=== PATIENT | female | born 1950 | race Caucasian/White ===

== ENCOUNTER 2023-01-18 08:59 | Inpatient (IN) ==
--- NOTE | 2022-12-29 14:29 | PAT Medication Instructions ---
Medication Instructions Date of Service December 29, 2022 Home Medications cholecalciferol (vitamin D3) 50 mcg (2,000 unit) tablet (Vitamin D3) 50 mcg PO QAM levothyroxine 88 mcg tablet (Synthroid) 88 mcg PO QAM Centrum 1 tab PO QAM naproxen sodium 220 mg tablet (Aleve) 220 mg PO Q12H PRN Pain PreserVision AREDS-2 1 tab PO BID ASK your surgeon for instructions naproxen sodium 220 mg tablet (Aleve) 220 mg PO Q12H PRN Pain STOP taking 2 weeks before surgery (or as soon as possible if surgery is within 2 weeks) PreserVision AREDS-2 1 tab PO BID DO NOT take the morning of surgery cholecalciferol (vitamin D3) 50 mcg (2,000 unit) tablet (Vitamin D3) 50 mcg PO QAM Centrum 1 tab PO QAM Take morning of surgery With a small sip of water, OTHERWISE NOTHING TO EAT OR DRINK AFTER MIDNIGHT: levothyroxine 88 mcg tablet (Synthroid) 88 mcg PO QAM Other Notes If you have any questions please call us at [phone] or [phone] or [phone] or [phone]
--- NOTE | 2023-01-04 14:05 | Anesthesiology Consultation ---
Date of Service January 04, 2023 Assessment & Plan (1) Encounter for pre-operative examination: - COVID screening: Per assessment on 01/04: No known COVID-19 positive contacts or current COVID-19 related symptoms. Travel screen negative. Patient vaccinated. At surgeon discretion if preop Covid testing being done. - Anemia: H/H 9.7/30.6 on preop labs 01/04/23. No comparison labs available. Note written to PCP- Awaiting response (AKIN Aragon). Chart Review Chart Review: Patient seen in Pre Admission Testing Teaching & Discussion Pre-Anesthesia Teaching/Discussion Notes: Instructed NPO after midnight before surgery,except medications with 15 cc of water. Medication instructions provided according to the PAT guidelines. History Surgery Operation Date: 01/18/23 10:35 Proposed Procedures p L4-L5 Decompression and Fusion, Possible L5-S1, Spinal Cord Monitoring - Thom Maldonado, Height/Weight Height: 5 ft 3.5 in Weight: 77.5 kg Allergies Allergy/AdvReac Type Severity Reaction Status Date / Time adhesive tape Allergy Mild removed Verified 12/29/22 13:11 skin Medications Home Medications Medication Instructions Recorded Confirmed Last Taken cholecalciferol (vitamin D3) 50 50 mcg PO QAM 12/29/22 12/29/22 Unknown mcg (2,000 unit) tablet (Vitamin D3) levothyroxine 88 mcg tablet 88 mcg PO QAM 12/29/22 12/29/22 Unknown (Synthroid) multivitamin-ferrous 1 tab PO QAM 12/29/22 12/29/22 Unknown fumarate-folic acid 18 mg-400 mcg tablet (Centrum) naproxen sodium 220 mg tablet 220 mg PO Q12H PRN Pain 12/29/22 12/29/22 Unknown (Aleve) vit C 250 mg-vit E 90 mg-zinc 40 1 tab PO BID 12/29/22 12/29/22 Unknown mg-copper 1 [id number] capsule (PreserVision AREDS-2) Nexium 1 tab PO DAILY 01/04/23 01/04/23 Unknown Past Medical History Medical History Hypothyroidism NSAID long-term use Preventatively taking Nexium d/t long-term NSAID use per patient Seasonal allergies Exercise / Class Metabolic Activity II 4-5 Yardwork/Stairs/Walk up hill (one FS (no CP, no SOB)) Past Family History Family History Other No family history of adverse response to anesthesia Past Surgical History Surgical History Hx of appendectomy Hx of bilateral cataract extraction Hx of section Hx of tonsillectomy Hx of tooth extraction Past Anesthesia History No Hx of Anesthesia Complications and No Family Hx of Anesthesia Complications History of PONV No Hx of PONV and No Hx of Motion Sickness Social History Smoking Status: Never smoker Do You Dip or Chew Tobacco: No Hx Alcohol Use: No Hx Substance Use: No substance use type: does not use Review of Systems Patient denies chest pain, shortness of breath, dyspnea on exertion, fever, chills, cough, wheezing, palpitations. Physical Exam Vital Signs VITALS BP 151/74 P 92 TEMP 97.6 SP02 99%RA RESP 16 PHYSICAL Full cervical extension range of motion. Full TMJ range of motion. TMD 3.5 finger breaths Mallampati Score 2 Dentition: intact Lungs: clear throughout to auscultation Cardiac: regular rate and rhythm, no murmurs noted Spine: normal Carotid arteries: negative bruit Extremities: non-pitting LE edema Lab Results Anesthesia Preop Results Results Anesthesia Widget: WBC 3.82 K/ul (4.8-10.8) L 01/04/23 Hgb 9.7 g/dl (12.0-16.0) L 01/04/23 Hct 30.6 % (37.0-47.0) L 01/04/23 Plt 261 K/uL (130-400) 01/04/23 Na 140 mmol/L (136-145) 01/04/23 K 3.6 mmol/L (3.5-5.1) 01/04/23 Cl 108 mmol/L (98-107) H 01/04/23 CO2 29 mmol/L (21-32) 01/04/23 BUN 17 mg/dl (6-23) 01/04/23 Creat 0.48 mg/dl (0.6-1.2) L 01/04/23 Glucose Level 115 mg/dl (70-99(Fasting)) H 01/04/23 PT 11.4 Seconds (9.0-12.0) 01/04/23 PTT 29.3 Seconds (21.0-31.0) 01/04/23 INR 1.1 (0.9-1.1) 01/04/23 Urine Color Yellow 01/04/23 Urine Appearance Clear (Clear) 01/04/23 Urine pH 7.5 (4.5-7.5) 01/04/23 Urine Specific [place] 1.014 (1.000-1.030) 01/04/23 Urine Protein Negative (Negative) 01/04/23 Urine Glucose (UA) Negative (Negative) 01/04/23 Urine Ketones Negative (Negative) 01/04/23 Urine Blood Negative (Negative) 01/04/23 Urine Nitrite Negative (Negative) 01/04/23 Urine Bilirubin Negative (Negative) 01/04/23 Urine Urobilinogen Negative (Negative) 01/04/23 Urine Leukocyte Esterase Negative (Negative) 01/04/23 Blood Type B Positive 01/04/23 Antibody Screen NEGATIVE 01/04/23 Testing Laboratory Results Low WBC- results forwarded to PCP* Electrocardiogram Date: 01/04/23 Findings: + NSR @ (81) Chest X-Ray Date: 01/04/23 FINDINGS: Lung volumes are normal. Lungs are clear. There is no pneumothorax or pleural effusion. Cardiac size is normal. Mediastinal contours are normal. There is no evidence for pulmonary edema. IMPRESSION: No acute cardiopulmonary findings. COVID-19 Risk Screen Screening Information COVID-19 Screen Date: 01/04/23 Exposure 21 Days Family/Household +COVID Last 21 Days: No Exposure 10 Days Any COVID Exposure Last 10 Days: No Symptoms Last 10 Days Experienced COVID Sx Last 10 Days: No + COVID 0-90 Days COVID + in Last 0-90 Days: No
[~2023-01-18 08:59] MED LIST: ACETAMINOPHEN 500 MG TAB PO SCH; CeleBREX 200 MG CAP PO SCH; GABAPENTIN 300 MG CAP PO SCH; LR 15ML/HR IV SCH; ceFAZolin 2000MG 2,000 MG/15 ML SYR IV SCH
[2023-01-18] MEDS ORDERED: HYDROmorphone INJ 1 MG/ML SYRINGE IV PRN ×2 (09:34→18:43)
[2023-01-18] MEDS ORDERED: ONDANSETRON INJ 2 MG/ML 2 ML VIAL IV PRN ×2 (09:34→18:43)
[2023-01-18] MEDS ORDERED: ePHEDrine sulfate 50 MG/ML AMP IV PRN (09:34)
[2023-01-18] MEDS ORDERED: PROMETHAZINE HCL 6.25 MG in SODIUM CHLORIDE 0.9% 50 ML IV PRN (09:34)
[2023-01-18] MEDS ORDERED: fentaNYL citrate PF 100 MCG/2 ML VIAL IV PRN (09:34)
[2023-01-18] MEDS ORDERED: ATROPINE SULFATE 0.1 MG/ML 10ML SYR IV PRN (09:34)
[2023-01-18] MEDS ORDERED: LIDOCAINE 2% MPF LOCAL 5 ML VIAL ONE (10:30)
[2023-01-18] MEDS ORDERED: PROPOFOL IV EMULSION 10 MG/ML 20 ML VIAL IV ONE (10:30)
[2023-01-18] MEDS ORDERED: MIDAZOLAM HCL 1 MG/ML 2ML VIAL ONE (10:31)
[2023-01-18] MEDS ORDERED: ROCURONIUM BROMIDE 10 MG/ML 5 ML VIAL IV ONE (10:31)
[2023-01-18] MEDS ORDERED: fentaNYL citrate PF 100 MCG/2 ML VIAL ONE (10:31)
--- NOTE | 2023-01-18 10:37 | History & Physical Bridge Note ---
Date of Service January 18, 2023 History & Physical Bridge Note I have examined the patient, reviewed the History & Physical and in the interval since the performance of the History & Physical I have noted the following changes of clinical significance: no changes noted
--- NOTE | 2023-01-18 10:38 | History & Physical Report ---
Date of Service January 18, 2023 Assessment & Plan (1) Neurogenic claudication due to lumbar spinal stenosis: Plan: L4-L5 decompression and fusion, possible L5-S1 History of Present Illness Chief Complaint: Back and bilateral leg pain Primary Care Provider: Zana Morales Allergies Allergy/AdvReac Type Severity Reaction Status Date / Time adhesive tape Allergy Mild removed Verified 01/18/23 09:34 skin Home Medications Medication Instructions Recorded Confirmed Type cholecalciferol (vitamin D3) 50 50 mcg PO QAM 12/29/22 01/18/23 History mcg (2,000 unit) tablet (Vitamin D3) levothyroxine 88 mcg tablet 88 mcg PO QAM 12/29/22 01/18/23 History (Synthroid) multivitamin-ferrous 1 tab PO QAM 12/29/22 01/18/23 History fumarate-folic acid 18 mg-400 mcg tablet (Centrum) naproxen sodium 220 mg tablet 220 mg PO Q12H PRN Pain 12/29/22 01/18/23 History (Aleve) vit C 250 mg-vit E 90 mg-zinc 40 1 tab PO BID 12/29/22 01/18/23 History mg-copper 1 [id number] capsule (PreserVision AREDS-2) Nexium 1 tab PO DAILY 01/04/23 01/18/23 History Past Med/Surg History Medical History Hypothyroidism NSAID long-term use Preventatively taking Nexium d/t long-term NSAID use per patient Seasonal allergies Surgical History Hx of appendectomy Hx of bilateral cataract extraction Hx of section Hx of tonsillectomy Hx of tooth extraction Family History Other No family history of adverse response to anesthesia Social History Smoking Status: Never smoker Second Hand Exposure: No; Do You Dip or Chew Tobacco: No; Tobacco Cessation Education Requested by Patient: No Hx Alcohol Use: No Hx Substance Use: No Preferred Language: Maltese Communication Ability: Effective 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
[2023-01-18] MEDS ORDERED: BUPIVACAINE/EPINEPHRINE 0.25% 1:200,000 30 ML VIAL ONE (10:52)
[2023-01-18] MEDS ORDERED: ceFAZolin 330 MG/ML 1 GM VIAL ONE (10:53)
[2023-01-18] MEDS ORDERED: DEXAMETHASONE SOD INJ 4 MG/ML VIAL ONE (11:35)
[2023-01-18] MEDS ORDERED: ONDANSETRON INJ 2 MG/ML 2 ML VIAL ONE (11:37)
[2023-01-18] MEDS ORDERED: HYDROmorphone INJ 2 MG/ML SYR/VIAL ONE (11:50)
[2023-01-18] MEDS ORDERED: NEOSTIGMINE METHYLSULFATE 1 MG/ML 10ML VIAL ONE (13:10)
[2023-01-18] MEDS ORDERED: GLYCOPYRROLATE 0.2 MG/ML VIAL ONE (13:10)
[2023-01-18] MEDS ORDERED: FLOSEAL HEMOSTATIC MATRIX 10ML TOP ONE (13:16)
--- NOTE | 2023-01-18 13:19 | Operative Report ---
Post Operative Report Pre & Post Diagnosis Operation Date: 01/18/23 10:35 Pre-Op Diagnosis: Neurogenic claudication due to lumbar spinal stenosis L4-S1 Spondylolisthesis L4-L5 Post-Op Diagnosis: Same I identified the patient and participated in the time-out.: Yes Procedure Operation Date: 01/18/23 10:35 Actual Procedures 1 lumbar decompression bilaterally facetectomies and foraminotomies L3-L4, L4-5 L5-S1. #2 posterior spinal fusion L4-L5 L5-S1. #3 placement posterior instrumentation L4-S1. #4 interbody fusion L4-L5 L5-S1. #5 placement of Spira 8 x 22 mm at L4-5 and 12 x 26 mm at L5-S1. #6 placement locally harvested morselized autograft in the posterior gutters. #7 placement of I factor V toss interbody space and posterior gutters. Surgeon Thom Maldonado DO Automotive Exhaust Emissions Technician Mily Collins Estimated Blood Loss 100 Findings Consistent with Post-Op Diagnosis Specimens None Indications This is a 72-year-old female who presents above-mentioned diagnosis of failed course of nonoperative care is here for surgical invention. Description of Procedure Patient was met with identified informed consent obtained. Patient was then taken to the operative suite underwent patient placed in a prone position on the [place] table top Paul frame. All bony prominences well-padded eyes inspected to ensure no external pressure placed upon the. This point lumbar spine was prepped and draped in normal sterile fashion. Sharp dissection with the assistance of Bovie cautery to form down to and exposing the lamina and transverse processes of L4-L5 and S1 levels bilaterally with assistance of fluoroscopy. From a caudal cephalad fashion complete laminectomy L5 L4 partial laminectomy of L3 was performed including bilateral medial facetectomies and foraminotomies addressing severe spinal stenosis. Pedicle screws were then placed in L4-L5 and S1 levels bilaterally with assistance of fluoroscopy and appropriate sized elizabeth placed. By way of a transforaminal approach and left complete discectomy of L5-S1 was performed endplates curetted to subcortically bone and a 12 x 26 mm Spira cage with I factor tapped in position. Then proceeded to L4-L5 and again by way of transforaminal approach and left complete discectomy performed endplates curetted to subcortical and bone and a 8 x 22 mm Spira cage with I factor tapped in position. The rods then locked into final position bilaterally. The transverse processes of L4-5 and sacral ala burred to subcortically bone. I factor bone of the test and locally harvested morselized graft was placed in the posterior gutters. 15 round SIMONA drain inserted. The incision was then closed with 1 Vicryl the fascia 2-0 Vicryl subcutaneously and 4 Monocryl for final skin closure. Steri-Strip sterile dressing placed. Patient waken taken to PACU in stable condition. Please note spinal cord monitoring was utilized at the procedure no changes noted. Lastly Mily Collins was present at the entire surgery and while the patient positioning complex portion of the surgery and final skin closure. I attest to the content of the Intraoperative Record and any orders documented therein. Any exceptions are noted below.
--- NOTE | 2023-01-18 14:25 | Fluoroscopy Report ---
FL lumbar spine 2-3V CLINICAL HISTORY: L4-L5 DECOMP AND FUSION COMPARISON STUDY: None FLUOROSCOPY TIME: 28.1 seconds FLUOROSCOPY IMAGES: 2 EXPOSURE DOSE: 26.25 mGy FINDINGS: Posterior interbody elizabeth and screw fusion hardware with discectomy noted at L4-S1. Hardware appears intact. Anterolisthesis L4 on L5. No unexpected opaque foreign bodies identified. IMPRESSION: Fluoroscopic assistance as above. ACT 112: Negative or not required by law. Electronically signed by: Shola Matthew M.D. 01/18/2023 2:23 PM
--- NOTE | 2023-01-18 14:44 | Anesthesiology Progress Note ---
Date of Service January 18, 2023 Anesthesia Post Procedure Vital Signs Vital Signs: Temp Pulse Pulse Resp BP Pulse Ox O2 Del Method 01/18/23 14:25 36.2 C L 61 10 L 126/55 L 97 Room Air 01/18/23 14:15 36.4 C L 63 10 L 125/64 98 Room Air 01/18/23 14:05 36.4 C L 65 10 L 131/62 95 Room Air 01/18/23 13:55 36.4 C L 70 12 136/63 96 Room Air 01/18/23 13:45 36.4 C L 78 16 138/71 100 Oxymask 01/18/23 09:37 36.6 C 83 20 167/79 H 100 Room Air O2 Flow Rate 01/18/23 14:25 01/18/23 14:15 01/18/23 14:05 01/18/23 13:55 01/18/23 13:45 5 01/18/23 09:37 Pain Intensity Back: Pain Intensity: 0 Transfer of Care Handoff Completed per policy Notes Mental Status: alert / awake / arousable and participated in evaluation Patient Amnestic to Procedure: Yes Nausea / Vomiting: adequately controlled Pain: adequately controlled Airway Patency, RR, SpO2: stable & adequate BP & HR: stable & adequate Hydration State: stable & adequate Anesthetic Complications: no major complications apparent and Pt Satisfied with anesthetic care
[2023-01-18] MEDS ORDERED: ONDANSETRON 4 MG OD TAB PO PRN (18:43)
[2023-01-18] MEDS ORDERED: SOD PHOSPHATE/SOD BIPHOSPHATE ENEMA 132 ML BTL PR PRN (18:43)
[2023-01-18] MEDS ORDERED: MAGNESIUM HYDROXIDE SUSP 30 ML UDC PO PRN (18:43)
[2023-01-18] MEDS ORDERED: PROMETHAZINE HCL 12.5 MG in SODIUM CHLORIDE 0.9% 50 ML IV PRN (18:43)
[2023-01-18] MEDS ORDERED: diphenhydrAMINE Capsule 25 MG CAP PO PRN (18:43)
[2023-01-18] MEDS ORDERED: METOCLOPRAMIDE HCL INJ 5 MG/ML 2 ML VIAL IV PRN (18:43)
[2023-01-18] MEDS ORDERED: DO NOT ADMINISTER FLU VACCINE PRN (18:43)
[2023-01-18] MEDS ORDERED: traMADol HCL 50 MG TABLET PO PRN (18:43)
[2023-01-18] MEDS ORDERED: FAMOTIDINE 20 MG TAB PO PRN (18:43)
[2023-01-18] MEDS ORDERED: LORazepam 2 MG/1 ML VIAL IV PRN (18:43)
[2023-01-18] MEDS ORDERED: ACETAMINOPHEN 1,000 MG/100 ML VIAL IV PRN (18:43)
[2023-01-18] MEDS ORDERED: NALOXONE HCL 0.4 MG/1 ML VIAL/CARP IV PRN (18:43)
[2023-01-18] MEDS ORDERED: hydrOXYzine HCl 25 MG TAB PO PRN (18:43)
[2023-01-18] MEDS ORDERED: ACETAMINOPHEN 500 MG TAB PO PRN (18:43)
[2023-01-18] MEDS ORDERED: LORazepam 0.5 MG TAB PO PRN (18:43)
[2023-01-18] MEDS ORDERED: DO NOT ADMINISTER PNEUMOCOCCAL VACCINE PRN (18:43)
[2023-01-18] MEDS ORDERED: ALUMINUM/MAGNESIUM SUSP 30 ML UDC PO PRN (18:43)
[2023-01-18] MEDS ORDERED: HYDROmorphone INJ 0.5 MG/0.5 ML SYR IV PRN (18:43)
[2023-01-18] MEDS ORDERED: bisacodyL 10 MG SUPP PR PRN (18:43)
--- NOTE | 2023-01-18 19:06 | Consultation ---
Date of Consultation January 18, 2023 Assessment & Plan (1) Neurogenic claudication due to lumbar spinal stenosis: (2) Hypothyroidism: (3) Macular degeneration: Plan 72 y/o s/p decompression and fusion surgery under the care of Dr. Maldoando. Pt rcovering well post-operatively without PONV or over pain. Pt is normotensive without signs of overt anemia. Will trend H/H in AM. Per admitting team for pain management. Neurogenic claudication due to lumbar spinal stenosis: POD# 0 s/p decompression and fusion surgery under the care of Dr. Maldonado. Per ortho for pain control, wound care, anticoagulation and activities. Monitor H&H, continue incentive spirometry PT/OT when appropriate Hypothyroidism: Takes Synthroid; continue Macular Degeneration: Takes PreserVision AREDS; was held x2 weeks in anticipation for surgery Resume if cleared by general surgery Disposition: PCP: Dr. Zana Morales in [place], [place] Code Status: Full Code VTE Prophylaxis: Teds and SCDs per admitting team I spent a total of 55 minutes coordinating, documenting, and providing care for this patient excluding time spent in the performance of separately billed services. All of the aforementioned completed while collaborating with the assigned attending physician for a full treatment plan. Please see their addendum for further details. Supervising Physician Co-Signing Physician Notes Care coordinated with AKIN Prado . Agree with above note. Patient seen and examined. Please refer to her notes for full details. Vital signs reviewed. Physical exam: General exam: Alert and oriented. Not in acute distress. CVS: S1 and S2 heard, regular rate and rhythm, no murmurs. RS: Clear to auscultation, no wheezing or crackles. ABD: Soft, bowel sounds present, nontender, no distention. ABLE SEAMAN: Nonfocal. Musculoskeletal s/p back surgery Dressing intact EXT: No edema, no erythema. Labs: Reviewed. Assessment and plan: s/p back surgery. doing fine. Denies any chest pain or sob or cough or nausea. resting comfortably s/p Back surgery. Management as per Ortho. Hypothyroidism on synthyroid Other diagnosis and plan of care as per AKIN Prado . Henrique sibley MD. History of Present Illness Requesting Physician: Dr. Maldonado Reason for Consultation: Postop medical management Attending Physician: Thom Maldonado DO History of Present Illness Ms. Bullock is a 72-year-old female that presented to the [facility] for an elective decompression and fusion surgery L4-L5; L5-S1 after failed conservative management due to neurogenic claudication due to lumbar spinal stenosis. Intraoperatively patient with a EBL 100 mL; remains normotensive without signs of anemia. Preop hemoglobin 9.7 on 01/04. Patient has a past medical history that includes hypothyroidism, macular degeneration, and seasonal allergies. Additionally patient has had surgical intervention before history of appendectomy and tonsillectomy. She reports that she had stopped taking her PreserVision two weeks prior to surgery by recommendation. Pt lying flat in her hospital bed in no apparent distress. Pt AAOx4 and able to answer questions appropriately. Pt had just ambulated to the bathroom with her walker prior to my arrival. She denies WISEMAN, dizziness, Chest pain, palpitations, SOB, abdominal pain, N/V/D, visual or auditory changes. I instructed her on ISB use and she demonstrated understanding. She has a SIMONA drain x1 with hitesh red bloody drainage. No neumann catheter post operatively. Thank you kindly for consulting [facility] for medical management of this postoperative patient. Please feel free to contact us via [place] text 25/04 for any additional assistance necessary. Allergies Allergy/AdvReac Type Severity Reaction Status Date / Time adhesive tape Allergy Mild removed Verified 01/18/23 09:34 skin Home Medications Medication Instructions Recorded Confirmed Type cholecalciferol (vitamin D3) 50 50 mcg PO QAM 12/29/22 01/18/23 History mcg (2,000 unit) tablet (Vitamin D3) levothyroxine 88 mcg tablet 88 mcg PO QAM 12/29/22 01/18/23 History (Synthroid) multivitamin-ferrous 1 tab PO QAM 12/29/22 01/18/23 History fumarate-folic acid 18 mg-400 mcg tablet (Centrum) naproxen sodium 220 mg tablet 220 mg PO Q12H PRN Pain 12/29/22 01/18/23 History (Aleve) vit C 250 mg-vit E 90 mg-zinc 40 1 tab PO BID 12/29/22 01/18/23 History mg-copper 1 [id number]-gmldti capsule (PreserVision AREDS-2) Nexium 1 tab PO DAILY 01/04/23 01/18/23 History Patient History Medical History (Updated 01/18/23 @ 19:32 by AKIN Mooney) Hypothyroidism Macular degeneration NSAID long-term use Preventatively taking Nexium d/t long-term NSAID use per patient Seasonal allergies Surgical History Hx of appendectomy Hx of bilateral cataract extraction Hx of section Hx of tonsillectomy Hx of tooth extraction Family History Other No family history of adverse response to anesthesia Social History Smoking Status: Never smoker Second Hand Exposure: No; Do You Dip or Chew Tobacco: No; Tobacco Cessation Education Requested by Patient: No Hx Alcohol Use: No Hx Substance Use: No Preferred Language: Nepalese Communication Ability: Effective Cardiothoracic Icu Rn Required: No Beliefs That Will Affect Care: None Current Living Situation: Spouse Other Information That Helps Us Care for You: No Feels Safe at Home: Yes Safety Concerns: Feels Safe At This Time Assistive Devices: Cane and Glasses Assistive Devices Comment: cane for balance Review of Systems Review of Systems: Neuro: (-) Falls, trauma, slurred speech HEENT: (-) WISEMAN, dizziness, dysphagia, visual or auditory changes CV: (-) CP, palpitations, swelling Resp: (-) SOB GI: (-) appetite changes, N/V/D, bowel changes : (-) urinary changes Skin: (-) rashes Psych: (-) anxiety, depression Physical Exam Physical Exam: Neuro: AAOx4, PERRLA, no aphagia, memory changes, CNII-XII grossly intact HEENT: head normocephalic, moist mucus membranes CV: S1/S2, (-) M/G/R, (-) edema, cap refill < 3 seconds SIMONA drain x1 with hitesh red blood output Resp: Lungs CTA in all wagoner. On RA GI: Abdomen S/NT/ND, Ax4 bowel sounds, (-) CVA tenderness Musculoskeletal: 5/5 B/L UE strength, 5/5 B/L LE strength. No gait disturbance Skin: (-) rashes , (-) erythema. Psych: euthymic mood Results & Data Vital Signs (Past 12 Hours) Vital Signs Temp Pulse Pulse Resp BP Pulse Ox O2 Del Method 01/18/23 18:44 37 C 87 18 137/58 L 97 Room Air 01/18/23 18:00 36.2 C L 70 16 121/56 L 95 Room Air 01/18/23 17:45 93 H 22 130/73 95 Room Air 01/18/23 17:30 98 H 16 122/58 L 100 Nasal Cannula 01/18/23 17:15 67 16 125/54 L 100 Nasal Cannula 01/18/23 17:00 71 18 130/54 L 100 Nasal Cannula 01/18/23 16:45 69 18 127/57 L 100 Nasal Cannula 01/18/23 16:30 91 H 18 157/92 H 100 Nasal Cannula 01/18/23 16:15 64 15 129/58 L 100 Nasal Cannula 01/18/23 16:00 65 11 L 125/56 L 100 Nasal Cannula 01/18/23 15:45 62 11 L 114/54 L 100 Nasal Cannula 01/18/23 15:30 62 11 L 122/50 L 100 Nasal Cannula 01/18/23 15:15 36.2 C L 60 11 L 114/51 L 100 Nasal Cannula 01/18/23 15:00 36.2 C L 59 L 11 L 120/56 L 100 Nasal Cannula 01/18/23 14:45 36.2 C L 56 L 11 L 118/58 L 100 Nasal Cannula 01/18/23 14:25 36.2 C L 61 10 L 126/55 L 97 Room Air 01/18/23 14:15 36.4 C L 63 10 L 125/64 98 Room Air 01/18/23 14:05 36.4 C L 65 10 L 131/62 95 Room Air 01/18/23 13:55 36.4 C L 70 12 136/63 96 Room Air 01/18/23 13:45 36.4 C L 78 16 138/71 100 Oxymask 01/18/23 09:37 36.6 C 83 20 167/79 H 100 Room Air O2 Flow Rate 01/18/23 18:44 01/18/23 18:00 01/18/23 17:45 01/18/23 17:30 2 01/18/23 17:15 2 01/18/23 17:00 2 01/18/23 16:45 2 01/18/23 16:30 2 01/18/23 16:15 2 01/18/23 16:00 2 01/18/23 15:45 2 01/18/23 15:30 2 01/18/23 15:15 2 01/18/23 15:00 2 01/18/23 14:45 2 01/18/23 14:25 01/18/23 14:15 01/18/23 14:05 01/18/23 13:55 01/18/23 13:45 5 01/18/23 09:37 Diagnostic Findings Lumbar Spine X-Ray 01/18/23 00:00 FL lumbar spine 2-3V CLINICAL HISTORY: L4-L5 DECOMP AND FUSION COMPARISON STUDY: None FLUOROSCOPY TIME: 28.1 seconds FLUOROSCOPY IMAGES: 2 EXPOSURE DOSE: 26.25 mGy FINDINGS: Posterior interbody elizabeth and screw fusion hardware with discectomy noted at L4-S1. Hardware appears intact. Anterolisthesis L4 on L5. No unexpected opaque foreign bodies identified. IMPRESSION: Fluoroscopic assistance as above. ACT 112: Negative or not required by law. Electronically signed by: Shola Matthew M.D. 01/18/2023 2:23 PM
[2023-01-18] MEDS: ceFAZolin 2000MG 2,000 MG/15 ML SYR IV SCH (20:18)
[2023-01-18] MEDS: DOCUSATE SODIUM/SENNA 50/8.6MG TAB PO SCH (20:18)
[2023-01-18] MEDS: LACTATED RINGER'S 1,000 ML IV SCH (21:13)
[2023-01-19] MEDS: ceFAZolin 2000MG 2,000 MG/15 ML SYR IV SCH (03:41)
[2023-01-19] MEDS: oxyCODONE HCL IR 5 MG TAB (IMMEDIATE RELEASE) PO PRN ×4 (04:01→22:49)
[2023-01-19] MEDS: LEVOTHYROXINE SODIUM 88 MCG TABLET PO SCH (05:29)
[2023-01-19] MEDS: POLYETHYLENE (MIRALAX) 17 GM PACK PO SCH ×4 (05:29→23:32)
[2023-01-19] MEDS: LACTATED RINGER'S 1,000 ML IV SCH (06:18)
[2023-01-19 07:11] LABS: Basophils # (auto) 0.01 K/uL (0-0.2); Basophils % (auto) 0.1 %; Eosinophils # (auto) 0.02 K/uL (0-0.50); Eosinophils % (auto) 0.3 %; Hematocrit (blood only) 24.4 % (37.0-47.0); Hemoglobin 7.7 g/dl (12.0-16.0); Immature Granulocytes # (auto) 0.02 K/uL (0.01-0.20); Immature Granulocytes % (auto) 0.3 %; Lymphocytes # (auto) 0.84 K/uL (1.2-3.4); Lymphocytes % (auto) 12.3 %; Mean Corpuscular Hemoglobin 25.9 pg (25.0-34.0); Mean Corpuscular Hgb Conc 31.6 g/dL (32.0-36.0); Mean Corpuscular Volume 82.2 fL (80.0-100.0); Mean Platelet Volume 12.7 fL (9.4-12.4); Monocytes # (auto) 0.71 K/uL (0.11-0.59); Monocytes % (auto) 10.4 %; Neutrophils # (auto) 5.25 K/uL (1.40-6.50); Neutrophils % (auto) 76.6 %; Platelet Count 217 K/uL (130-400); RDW Coefficient of Variation 15.3 % (11.5-14.5); RDW Standard Deviation 45.9 fL (36.4-46.3); Red Blood Count 2.97 M/uL (4.20-5.40); White Blood Count 6.85 K/ul (4.8-10.8)
[2023-01-19 07:14] LABS: Calcium 7.8 mg/dl (8.6-10.3); Creatinine Clr Calc Pharmacy 108.2 ml/min; Est GFR (African American) 115.2 ml/min; Est GFR (Non-African American) 99.4 ml/min; Potassium 3.5 mmol/L (3.5-5.1)
[2023-01-19 07:36] LABS: RBC Morphology Unremarkable
--- NOTE | 2023-01-19 08:20 | Hospitalist Progress Note ---
Date of Service January 19, 2023 Assessment & Plan (1) Neurogenic claudication due to lumbar spinal stenosis: (2) Hypothyroidism: (3) Macular degeneration: Plan 72 y/o s/p decompression and fusion surgery under the care of Dr. Maldonado. Pt recovering well post-operatively. Pt is normotensive without signs of overt anemia. Will trend H/H in AM. Per admitting team for pain management. Neurogenic claudication due to lumbar spinal stenosis: POD# 1 s/p decompression and fusion surgery under the care of Dr. Maldonado. Per ortho for pain control, wound care, anticoagulation and activities. Monitor H&H, continue incentive spirometry Pre-op Hgb 9.7 -> post-op 7.7 Acute on chronic anemia, post-op, blood loss anemia vs. dilutional Pt followed by PCP for anemia - outpt note reviewed - further work-up planned as outpt -cont. to monitor H&H - labs ordered PT/OT when appropriate Hypothyroidism: Takes Synthroid; continue Macular Degeneration: Takes PreserVision AREDS; was held x2 weeks in anticipation for surgery Resume if cleared by general surgery Disposition: PCP: Dr. Zana Morales in [place], [place] Code Status: Full Code VTE Prophylaxis: Teds and SCDs per admitting team Admission and Anticipated Discharge Date Admission Date: January 18, 2023 Subjective Pt sen in follow up of med. consult pt s/p lumbar spine surgery Currently patient is sitting up in a chair, in no acute distress Reports she worked with physical therapy this morning and did quite well, overall, reports feeling well No fevers chills chest pain shortness of breath No abdominal pain Reports urinating without difficulty, no BM yet H&H low at 7.7 this morning Family at the bedside and updated Review of Systems Review of Systems: All systems reviewed & are unremarkable except as noted in Subjective Physical Exam Physical Exam: General: elderly F in NAD HEENT: he ad normocephalic, moist mucus membra ana cristina CV: S1/S2, (-) M/G/R, (-) edema, SIMONA drain x1 with serosang. output R ifeanyi: Lungs CTA in all wagoner. On RA GI: Abdomen S/NT/N D, Ax4 bowel sound s, (-) CVA tendern ess Musculoskeleta l: 5/5 B/L UE stre ngth, 5/5 B/L LE s trength. No gait d isturbance Neuro: AAOx3, PERRL, spee ch fluent, moves e xtremities Skin: ( -) rashes , (-) er ythema. Psych: eut hymic mood Results & Data Results & Data Vital Signs (Past 12 Hours) Vital Signs Temp Pulse Pulse Resp BP Pulse Ox O2 Del Method 01/19/23 07:25 36.7 C 74 18 113/63 97 Room Air 01/19/23 03:30 36.7 C 62 18 123/70 99 Room Air 01/18/23 22:16 36.8 C 70 18 112/60 98 Room Air 01/18/23 22:00 Room Air Laboratory Results 01/19/23 01/19/23 01/19/23 Range/Units 06:02 06:02 06:02 WBC 6.85 (4.8-10.8) K/ul RBC 2.97 L (4.20-5.40) M/uL Hgb 7.7 L (12.0-16.0) g/dl Hct 24.4 L (37.0-47.0) % MCV 82.2 (80.0-100.0) fL MCH 25.9 (25.0-34.0) pg MCHC 31.6 L (32.0-36.0) g/dL RDW Std Deviation 45.9 (36.4-46.3) fL RDW Coeff of Sal 15.3 H (11.5-14.5) % Plt Count 217 (130-400) K/uL MPV 12.7 H (9.4-12.4) fL Immature Gran % (Auto) 0.3 % Neut % (Auto) 76.6 % Lymph % (Auto) 12.3 % Crawford % (Auto) 10.4 % Eos % (Auto) 0.3 % Baso % (Auto) 0.1 % Neut # (Auto) 5.25 (1.40-6.50) K/uL Lymph # (Auto) 0.84 L (1.2-3.4) K/uL Crawford # (Auto) 0.71 H (0.11-0.59) K/uL Eos # (Auto) 0.02 (0-0.50) K/uL Baso # (Auto) 0.01 (0-0.2) K/uL Immature Gran # (Auto) 0.02 (0.01-0.20) K/uL RBC Morphology Unremarkable Sodium 142 (136-145) mmol/L Potassium 3.5 (3.5-5.1) mmol/L Chloride 110 H (98-107) mmol/L Carbon Dioxide 27 (21-32) mmol/L Anion Gap 5 (3-11) BUN 9 (6-23) mg/dl Creatinine 0.45 L (0.6-1.2) mg/dl Est Cr Clr Drug Dosing 108.2 ml/min Est GFR ( Amer) 115.2 ml/min Est GFR (Non-Af Amer) 99.4 ml/min BUN/Creatinine Ratio 20.0 (10-20) Glucose 93 (70-99(Fasting)) mg/dl Calcium 7.8 L (8.6-10.3) mg/dl Hepatitis C Ab (EIA) Pending Hep C Ab Signal/Cutoff Pending SARS-CoV-2, RNA, NAAT (NEGATIVE) Blood Type Antibody Screen 01/18/23 01/18/23 Range/Units 09:25 09:22 WBC (4.8-10.8) K/ul RBC (4.20-5.40) M/uL Hgb (12.0-16.0) g/dl Hct (37.0-47.0) % MCV (80.0-100.0) fL MCH (25.0-34.0) pg MCHC (32.0-36.0) g/dL RDW Std Deviation (36.4-46.3) fL RDW Coeff of Sal (11.5-14.5) % Plt Count (130-400) K/uL MPV (9.4-12.4) fL Immature Gran % (Auto) % Neut % (Auto) % Lymph % (Auto) % Crawford % (Auto) % Eos % (Auto) % Baso % (Auto) % Neut # (Auto) (1.40-6.50) K/uL Lymph # (Auto) (1.2-3.4) K/uL Crawford # (Auto) (0.11-0.59) K/uL Eos # (Auto) (0-0.50) K/uL Baso # (Auto) (0-0.2) K/uL Immature Gran # (Auto) (0.01-0.20) K/uL RBC Morphology Sodium (136-145) mmol/L Potassium (3.5-5.1) mmol/L Chloride (98-107) mmol/L Carbon Dioxide (21-32) mmol/L Anion Gap (3-11) BUN (6-23) mg/dl Creatinine (0.6-1.2) mg/dl Est Cr Clr Drug Dosing ml/min Est GFR ( Amer) ml/min Est GFR (Non-Af Amer) ml/min BUN/Creatinine Ratio (10-20) Glucose (70-99(Fasting)) mg/dl Calcium (8.6-10.3) mg/dl Hepatitis C Ab (EIA) Hep C Ab Signal/Cutoff SARS-CoV-2, RNA, NAAT NEGATIVE (NEGATIVE) Blood Type B Positive Antibody Screen NEGATIVE Medications Administered Current Inpatient Medications Acetaminophen (Acetaminophen 500 Mg Tab) 1,000 mg PO Q8H PRN PRN Reason: MILD Pain Scale 1,2,3 & Pre PT Stop: 02/17/23 18:42 Al Hydrox/Mg Hydrox/Simethicone (Aluminum/Magnesium Susp 30 Ml Udc) 30 ml PO Q6H PRN PRN Reason: Dyspepsia Stop: 02/17/23 18:42 Bisacodyl (Bisacodyl 10 Mg Supp) 10 mg ND DAILY PRN PRN Reason: Constipation Stop: 02/17/23 18:42 Diphenhydramine HCl (Diphenhydramine Capsule 25 Mg Cap) 25 mg PO Q6H PRN PRN Reason: Allergic Rhinitis/Insomnia Stop: 02/17/23 18:42 Famotidine (Famotidine 20 Mg Tab) 20 mg PO Q12H PRN PRN Reason: Dyspepsia Stop: 02/17/23 18:42 Hydromorphone HCl (Hydromorphone Inj 0.5 Mg/0.5 Ml Syr) 0.5 mg IV Q3H PRN PRN Reason: MODERATE Pain (Scale 4,5,6) & Pre PT Stop: 02/01/23 18:42 Hydromorphone HCl (Hydromorphone Inj 1 Mg/Ml Syringe) 1 mg IV Q3H PRN PRN Reason: SEVERE Pain (Scale 7,8,9,10) Stop: 02/01/23 18:42 Hydroxyzine HCl (Hydroxyzine Hcl 25 Mg Tab) 25 mg PO Q8H PRN PRN Reason: Anxiety Stop: 02/17/23 18:42 Promethazine HCl 12.5 mg/ (Sodium Chloride) 50.5 mls @ 202 mls/hr IV Q6H PRN PRN Reason: Nausea &/or Vomiting Stop: 02/17/23 18:42 Acetaminophen (Ofirmev) 1,000 mg in 100 mls @ 400 mls/hr IV Q8H PRN PRN Reason: Pain Rating 1-3 & Pre PT Stop: 01/19/23 18:43 Dexamethasone 6 mg/ Syringe 1.5 mls @ 1 mls/min IV DAILY [facility] Stop: 01/21/23 09:02 Influenza Virus Vaccine Quadrival (Do Not Administer Flu Vaccine) 1 each N/A PRN PRN PRN Reason: Notification Stop: 02/17/23 18:42 Levothyroxine Sodium (Levothyroxine Sodium 88 Mcg Tablet) 88 mcg PO DAILYBB [facility] Stop: 02/18/23 06:29 Last Admin: 01/19/23 05:29 Dose: 88 mcg Lorazepam (Lorazepam 0.5 Mg Tab) 0.5 mg PO Q8H PRN PRN Reason: Sedation/Anxiety Stop: 02/17/23 18:42 Lorazepam (Lorazepam 2 Mg/1 Ml Vial) 0.5 mg IV Q8H PRN PRN Reason: Sedation/Anxiety Stop: 02/17/23 18:42 Magnesium Hydroxide (Magnesium Hydroxide Susp 30 Ml Udc) 30 ml PO Q24H PRN PRN Reason: Constipation Stop: 02/17/23 18:42 Metoclopramide HCl (Metoclopramide Hcl Inj 5 Mg/Ml 2 Ml Vial) 10 mg IV Q6H PRN PRN Reason: Nausea &/or Vomiting Stop: 02/17/23 18:42 Multivitamins/Minerals (Cerovite Adv Formula Tab) 1 tab PO QAM [facility] Stop: 02/18/23 08:59 Naloxone HCl (Naloxone Hcl 0.4 Mg/1 Ml Vial/Carp) 0.1 mg IV Q5M PRN PRN Reason: Oversedation/Resp depression Stop: 02/17/23 18:42 Ondansetron HCl (Ondansetron Inj 2 Mg/Ml 2 Ml Vial) 4 mg IV Q6H PRN PRN Reason: Nausea &/or Vomiting Stop: 02/17/23 18:42 Ondansetron HCl (Ondansetron 4 Mg Od Tab) 4 mg PO Q6H PRN PRN Reason: Nausea Stop: 02/17/23 18:42 Oxycodone HCl (Oxycodone Hcl Ir 5 Mg Tab (Immediate Release)) 5 - 10 mg PO Q4H PRN PRN Reason: Pain & Pre PT Stop: 02/01/23 18:42 Last Admin: 01/19/23 04:01 Dose: 5 mg Pantoprazole Sodium (Pantoprazole 40 Mg Tab) 40 mg PO DAILY [facility]; Protocol Stop: 02/18/23 08:59 Pneumococcal Polyvalent Vaccine (Do Not Administer Pneumococcal Vaccine) 1 each N/A PRN PRN PRN Reason: Notification Stop: 02/17/23 18:42 Polyethylene Glycol (Polyethylene (Miralax) 17 Gm Pack) 17 gm PO Q6 ISMAEL Stop: 02/18/23 05:59 Last Admin: 01/19/23 05:29 Dose: Not Given Senna/Docusate Sodium (Docusate Sodium/Senna 50/8.6mg Tab) 2 tab PO HS ISMAEL Stop: 02/17/23 20:59 Last Admin: 01/18/23 20:18 Dose: 2 tab Sodium Biphosphate/Sodium Phosphate (Sod Phosphate/Sod Biphosphate Enema 132 Ml Btl) 132 ml ND ONE PRN PRN Reason: Constipation Stop: 02/17/23 18:42 Tramadol HCl (Tramadol Hcl 50 Mg Tablet) 50 - 100 mg PO Q4H PRN PRN Reason: Moderate-Severe pain & Pre PT Stop: 02/17/23 18:42 Vitamin D (Cholecalciferol 1,000 Units 25 Mcg Tab) 1,000 units PO QAM ISMAEL Stop: 02/18/23 08:59
[2023-01-19] MEDS ORDERED: POTASSIUM CHLORIDE PWD 20 MEQ PACK PO ONE (08:21)
[2023-01-19] MEDS: dexAMETHasone 6 MG in SYRINGE 0 ML IV SCH (08:50)
[2023-01-19] MEDS: CEROVITE ADV FORMULA TAB PO SCH (08:50)
[2023-01-19] MEDS: PANTOprazole 40 MG TAB PO SCH (08:50)
--- NOTE | 2023-01-19 08:50 | Orthopedic Progress Note ---
Date of Service January 19, 2023 Assessment & Plan (1) Neurogenic claudication due to lumbar spinal stenosis: Plan: Meghan is postoperative day 1 status post TLIF L4-5, L5-S1. We will start physical therapy today. We will recheck H&H in the morning. Continue with pain control. DVT prophylaxis is in the form of teds and SCDs. Anticipate discharge home later on this week. Admission and Anticipated Discharge Date Admission Date: January 18, 2023 Subjective Meghan is postoperative day 1 status post TLIF L4-5 and L5-S1. She had an uneventful evening. Pain is controlled. SIMONA drain output last shift was 40 cc. H&H this morning are 7.7 and 24.4 respectively. She does have chronic iron deficiency anemia. She is asymptomatic. She has no cardiac history. Review of Systems Review of Systems: All systems reviewed & are unremarkable except as noted in HPI & below Physical Exam Physical Exam: She is seen in conjunction with her She is in no acute distress Lumbar dressing is clean dry intact with functioning SIMONA drain Calf soft nontender bilateral Strength is intact bilateral lower extremities Results & Data Vital Signs (Past 12 Hours) Vital Signs Temp Pulse Pulse Resp BP Pulse Ox O2 Del Method 01/19/23 07:25 36.7 C 74 18 113/63 97 Room Air 01/19/23 03:30 36.7 C 62 18 123/70 99 Room Air 01/18/23 22:16 36.8 C 70 18 112/60 98 Room Air 01/18/23 22:00 Room Air
[2023-01-19] MEDS: CHOLECALCIFEROL 1,000 UNITS 25 MCG TAB PO SCH (08:51)
[2023-01-19] MEDS ORDERED: LEVOTHYROXINE SODIUM 88 MCG TABLET PO SCH (09:00)
[2023-01-19] MEDS: DOCUSATE SODIUM/SENNA 50/8.6MG TAB PO SCH (20:40)
[2023-01-20] MEDS: POLYETHYLENE (MIRALAX) 17 GM PACK PO SCH ×4 (05:42→23:47)
[2023-01-20] MEDS: LEVOTHYROXINE SODIUM 88 MCG TABLET PO SCH (05:43)
[2023-01-20 06:17] LABS: Hematocrit (blood only) 25.2 % (37.0-47.0); Hemoglobin 7.9 g/dl (12.0-16.0)
[2023-01-20] MEDS: CEROVITE ADV FORMULA TAB PO SCH (08:19)
[2023-01-20] MEDS: oxyCODONE HCL IR 5 MG TAB (IMMEDIATE RELEASE) PO PRN (08:19)
[2023-01-20] MEDS: dexAMETHasone 6 MG in SYRINGE 0 ML IV SCH (08:19)
[2023-01-20] MEDS: PANTOprazole 40 MG TAB PO SCH (08:19)
[2023-01-20] MEDS: CHOLECALCIFEROL 1,000 UNITS 25 MCG TAB PO SCH (08:20)
--- NOTE | 2023-01-20 08:53 | Orthopedic Progress Note ---
Date of Service January 20, 2023 Assessment & Plan (1) Neurogenic claudication due to lumbar spinal stenosis: Plan: At this time we will continue physical therapy monitor her SIMONA output anticipate discharge tomorrow. Admission and Anticipated Discharge Date Admission Date: January 18, 2023 Subjective Patient's back pain is controlled leg symptoms markedly improved Physical Exam Physical Exam: Patient is sitting in the chair at the bedside. Skin strength testing but appears comfortable. Results & Data Vital Signs (Past 12 Hours) Vital Signs Temp Pulse Resp BP BP Pulse Ox O2 Del Method 01/20/23 08:26 37 C 66 16 110/67 97 Room Air 01/19/23 21:36 36.7 C 76 15 148/76 H 100 Room Air
--- NOTE | 2023-01-20 16:38 | Hospitalist Progress Note ---
Date of Service January 20, 2023 Assessment & Plan (1) Neurogenic claudication due to lumbar spinal stenosis: (2) Hypothyroidism: (3) Macular degeneration: (4) Anemia: Plan 72 y/o s/p decompression and fusion surgery under the care of ortho/spine. Medicine consulted for H/H post-op. Neurogenic claudication due to lumbar spinal stenosis: s/p surgery, continue to follow with ortho for pain control, wound care, anticoagulation and activities. Continue to trend H/h, stable today and improved from yesterday. Acute on chronic anemia cont. to monitor H&H - labs ordered PT/OT when appropriate Hypothyroidism: continue home Synthroid Macular Degeneration: -holding home drops Code Status: Full Code DVT Prophylaxis: Teds and SCDs per admitting team Admission and Anticipated Discharge Date Admission Date: January 18, 2023 Subjective Pt seen this AM. Sitting up in the chair, comfortable. Denies any acute concerns. Such as SOB, chest pain. Physical Exam Physical Exam: General: Alert, oriented. No acute distress Skin: No noted rashes or bruises Psych: Appropriate mood and affect Neuro: No gross deficits, pt was sitting in chair HEENT: NC/AT Chest: Nontender to palpation. CV: RRR Resp: Breath sounds clear bilaterally, no increased effort of breathing. Abdomen: Soft, nontender, nondistended. No guarding. No organomegaly appreciated. Extremities: compression stockings on lower extremities bilaterally. Results & Data Results & Data Vital Signs (Past 12 Hours) Vital Signs Temp Pulse Resp BP BP Pulse Ox O2 Del Method 01/20/23 15:17 37.0 C 78 16 126/67 99 Room Air 01/20/23 11:00 37.1 C 71 16 119/64 98 Room Air 01/20/23 08:26 37 C 66 16 110/67 97 Room Air
[2023-01-20] MEDS: DOCUSATE SODIUM/SENNA 50/8.6MG TAB PO SCH (20:36)
[2023-01-21] MEDS: LEVOTHYROXINE SODIUM 88 MCG TABLET PO SCH (05:56)
[2023-01-21] MEDS: POLYETHYLENE (MIRALAX) 17 GM PACK PO SCH (05:57)
[2023-01-21 07:33] LABS: Hematocrit (blood only) 25.2 % (37.0-47.0); Hemoglobin 8.1 g/dl (12.0-16.0)
[2023-01-21] MEDS: CHOLECALCIFEROL 1,000 UNITS 25 MCG TAB PO SCH (08:32)
[2023-01-21] MEDS: PANTOprazole 40 MG TAB PO SCH (08:32)
[2023-01-21] MEDS: CEROVITE ADV FORMULA TAB PO SCH (08:32)
[2023-01-21] MEDS: dexAMETHasone 6 MG in SYRINGE 0 ML IV SCH (08:32)
--- NOTE | 2023-01-21 10:23 | Discharge Summary ---
Date of Service January 21, 2023 Principal Diagnosis Lumbar spinal stenosis with neurogenic claudication Discharge Data Allergies Allergy/AdvReac Type Severity Reaction Status Date / Time adhesive tape Allergy Mild removed Verified 01/18/23 09:34 skin Consultations 01/18/23 18:43 Consult Hospitalist Routine Procedures Performed Operation Date: 01/18/23 10:35 Actual Procedures p L4-S1 Decompression and Fusion, Spinal Cord Monitoring(Not Applicable) - Thom Maldonado DO Ordered Studies 01/18/23 [place] lumbar spine 2-3V Routine Hospital Course (1) Neurogenic claudication due to lumbar spinal stenosis: Patient went lumbar decompression fusion tolerated as well as taken to orthopedic for postop labor postop day 1 she was up and ambulating progress through postop day #2. Postop day #3 she had marked improvement of her ambulation improvement of her leg pain. Extra strength testing. SIMONA drain decreasing appropriately. Subsequent discharge home. Discharge orders instructions found in chart for further review. Total Time Total Time Spent Total Time Spent (In Minutes): 20 minutes Discharge Plan Discharge Items Patient Disposition: Home - Self-Care Reason For Visit: Spinal Stenosis, Lumbar Region with Neurogenic Clu Discharge Diagnosis: lumbar stenosis Activity: As commented below Non-emergency contact: Primary Care Provider Call non-emergency contact if: you have any medication questions Follow-up/Referrals: Zana Morales CRNP [Primary Care Provider] - Diet: Regular Addtl Attending Provider Instructions: ACTIVITY RECOMMENDATIONS: SELF CARE INSTRUCTIONS AFTER THORACIC/LUMBAR FUSIONS 1. You may walk to your tolerance. It is good exercise for your legs and back. Expect some back and intermittent leg aches and pains. 2. You may perform "counter-top" level activities (make a sandwich, allen with a project, etc.). 3. No bending or lifting of more than 10 pounds or back twisting of any nature (roll like a log when turning in bed). 4. You may ride in a car for 20-30 minutes at a time. No driving until after your first visit with your doctor. 5. Frequent changes of position and restricting sitting to 30 minutes at a time will help limit the amount of back spasms and stiffness you may experience. 6. You may discontinue the use of ambulatory aids (cane, crutches, etc.) once your strength and confidence allow. 7. You may stock parts inspector the shower and let water strike your incision when you arrive home at least once daily. Do not take a tub bath, sit in a hot tub or go into a swimming pool until after your first recheck in the office. SPECIAL CARE INSTRUCTIONS: VERY IMPORTANT TO READ AND REVIEW A. Your surgical incision has been closed with a cosmetic suture under the skin that will dissolve in about 6 weeks. In 14 days, you can use a pair of clean scissors and cut the suture that is left outside of the skin at the ends of your incision. 1. The small skin tapes can be removed 7 days after surgery if they have not fallen off by that point. 2. You may keep the wound open to air as much as possible to promote healing after post-op day number 5 unless told otherwise by your doctor. 3. If you think the wound looks like it is becoming infected (redness or worsening drainage) and/or you are experiencing fever, chill or worsening back pain and muscle spasms, contact the office so that we may evaluate you as soon as possible. B. Complications are uncommon, but please contact us if you have any signs or symptoms of: 1. wound infection (fever higher than 102.5 degrees F, redness, separation of wound, drainage, or increasing pain from the incision) 2. blood clots in legs (pain, swelling, redness and warmth in legs) 3. urinary tract infection (fever higher than 102.5 degrees F, burning upon urination or increased frequency of urination) 4. nerve problems (inability to walk on your toes or heels, numbness, loss of bowel or bladder control) 5. any other symptoms that concern you C. Please call the office at if you have any concerns or questions about your operation or recovery. D. No smoking! Smoking drastically decreases the chance of a solid fusion. E. Do not take any anti-inflammatory medications (Indocin, Advil, Motrin, Aspirin, Naprosyn, etc.) as these may inhibit the chance of a solid fusion. Tylenol is okay to take for pain. MANAGING PAIN AFTER SPINAL SURGERY 1. Narcotic medication is intended for short-term use and will be provided for surgical pain. Surgical pain usually lasts for a period of 4-6 weeks. Narcotic medication includes Percocet, Vicodin, Darvocet, Tylenol #3 or Lortab. 2. Longer-term pain is more appropriately treated with non-narcotic medication such as Tylenol ES. 3. Muscle spasm is not appropriately treated with narcotics. Muscle relaxers such as Soma, Flexeril or Skelaxin can be used along with Tylenol ES. 4. Remember that we all live with some "aches and pains". This is not unusual or uncommon after an injury or as we get older. a. Back pain is expected and may include muscle spasms for 4 to 6 weeks after surgery. The pain should gradually improve. If the pain worsens for no apparent reason, please contact the office. b. Intermittent leg pain may also be experienced and should not be concerned about unless it worsens for no apparent reason. If so, please contact the office. 5. We will provide appropriate medication within the normal guidelines of their prescribed use. We will also be very cautious and aware of potential abuse and extended duration of patients' medication needs. a. Pain medications are for your comfort and to assist with sleep and rest so that the tissue can heal. They are not provided in order to return to normal activity and should not be used through the day. To do so or worsening pain at night can result from ongoing tissue damage and development of tolerance to the prescribed medicine. 6. Please allow 2-3 days to process refills. Prescriptions will not be mailed but must be picked up at the office. FOLLOW UP VISIT: Keep your scheduled follow-up appointment. Any questions, please call the office at . Pending Studies at Discharge: No Stand-Alone Forms: My [facility] [place], Smoking Cessation Medications and [place] Order Prescriptions: New tramadol 50 mg tablet 50 mg PO Q6H PRN (Reason: pain, moderate) Qty: 30 0RF oxycodone 5 mg tablet 5 mg PO DAILY PRN (Reason: pain) Qty: 30 0RF Continued levothyroxine [Synthroid] 88 mcg Tablet 88 mcg PO QAM cholecalciferol (vitamin D3) [Vitamin D3] 50 mcg (2,000 unit) Tablet 50 mcg PO QAM Centrum 18-400 mg-mcg Tablet 1 tab PO QAM PreserVision AREDS-2 250-90-40-1 mg Capsule 1 tab PO BID Nexium 1 tab PO DAILY Discontinued naproxen sodium [Aleve] 220 mg Tablet 220 mg PO Q12H PRN (Reason: Pain) Discharge Orders: Discharge Order (Routine); Ordered 01/21/23 Ordered By: Thom Maldonado Admission Data Admit Date/Time: 01/18/23 13:23 Attending Provider: Thom Maldonado Admit Provider: Thom Maldonado Primary Care Provider: Zana Morales Other Providers: Paulnie Cook ; Thom Maldonado ; Margarette Hillman
--- NOTE | 2023-01-21 16:38 | Hospitalist Progress Note ---
Date of Service January 21, 2023 Assessment & Plan (1) Neurogenic claudication due to lumbar spinal stenosis: (2) Hypothyroidism: (3) Macular degeneration: (4) Anemia: Plan 72 y/o s/p decompression and fusion surgery under the care of ortho/spine. Medicine consulted for H/H post-op. Neurogenic claudication due to lumbar spinal stenosis: s/p surgery, continue to follow with ortho for pain control, wound care, anticoagulation and activities. PT/OT when appropriate Discharge per primary team Acute on chronic anemia cont. to monitor H&H - labs ordered Currently stable Hypothyroidism: continue home Synthroid Macular Degeneration: -holding home drops Code Status: Full Code DVT Prophylaxis: Teds and SCDs per admitting team Admission and Anticipated Discharge Date Admission Date: January 18, 2023 Subjective Pt seen today. Was standing by the bed using her walker, getting ready for PT. Denies any acute concerns. States that she has no SOB, chest pain. Anticipating discharge today/tomorrow. Review of Systems Review of Systems: All systems reviewed & are unremarkable except as noted in Subjective Physical Exam Physical Exam: General: Alert, oriented. No acute distress Skin: No noted rashes or bruises, surgical wound covered with bandage on the back Psych: Appropriate mood and affect Neuro: using walker to ambulate HEENT: NC/AT CV: RRR, Normal s1, s2. No murmurs appreciated Resp: Breath sounds clear bilaterally, no increased effort of breathing. Abdomen: Soft, nontender, nondistended. No guarding. No organomegaly appreciated. Extremities: No edema in lower extremities bilaterally. Results & Data Results & Data Vital Signs (Past 12 Hours) Vital Signs Temp Pulse Pulse Resp BP BP Pulse Ox 01/21/23 10:42 36.9 C 76 64 12 123/67 118/68 99 01/21/23 07:43 36.9 C 76 12 118/68 99 01/21/23 07:27 36.9 C 64 18 123/67 92 O2 Del Method 01/21/23 10:42 01/21/23 07:43 Room Air 01/21/23 07:27 Room Air
== END 2023-01-21 12:10 | disposition home or self-care (01) | DRG 455 ==
LOC: ASU 08:59 → SUATTDRO 13:23 → 3W 13:23